=== PATIENT | male | born 1955 | race Caucasian/White ===

== ENCOUNTER 2019-10-24 19:10 | Emergency (ER) | payer OTHER ==
[~2019-10-24] VITALS: Ht 175.3 cm; Wt 106.6 kg
[2019-10-24] MEDS ORDERED: HYDROCHLOROTHIA25 MG (19:32)
[2019-10-24] MEDS ORDERED: COZAAR100 MG (19:32)
[2019-10-24] MEDS ORDERED: FORTAMET500 MG (19:33)
[2019-10-24] MEDS ORDERED: DILTIAZEM ER240 M3 (19:33)
[2019-10-24] MEDS ORDERED: MEDI-MECLIZINE25 MG (19:33)
[2019-10-24] MEDS ORDERED: AMLODIPINE-OLM1 EAC2 (19:34)
== END 2019-10-24 21:57 | disposition home or self-care (01) ==
LOC: ER 19:10
DX: R42 Dizziness and giddiness (principal)

== ENCOUNTER 2019-11-02 12:52 | Emergency (ER) | payer OTHER ==
[~2019-11-02] VITALS: Ht 175.3 cm; Wt 106.6 kg
[~2019-11-02 12:52] MED LIST: AMLODIPINE-OLM1 EAC2; COZAAR100 MG; DILTIAZEM ER240 M3; FORTAMET500 MG; HYDROCHLOROTHIA25 MG; MEDI-MECLIZINE25 MG
== END 2019-11-02 17:47 | disposition home or self-care (01) ==
LOC: ER 12:52 → EDBD 13:30 → ER 17:47
DX: J32.0 Chronic maxillary sinusitis (principal); B34.9 Viral infection, unspecified; Z03.818 Encounter for observation for suspected exposure to other biological agents ruled out

== ENCOUNTER 2020-10-17 14:04 | Outpatient (CLI) | payer OTHER | END 2020-10-17 14:09 | disposition home or self-care (01) | LOC: RAD 14:04 | PROVIDERS: ATTEND Internal Medicine Cardiovascular Disease | DX: M54.5 Low back pain (principal); M12.89 Other specific arthropathies, not elsewhere classified, multiple sites ==

== ENCOUNTER 2021-01-16 15:47 | Emergency (ER) | payer OTHER ==
[~2021-01-16] VITALS: Ht 170.2 cm; Wt 106.6 kg
[2021-01-16] MEDS ORDERED: TOPROL XL100 M1 (16:50)
== END 2021-01-16 20:28 | disposition home or self-care (01) ==
LOC: ER 15:47
DX: M48.07 Spinal stenosis, lumbosacral region (principal); M54.59 Other low back pain

== ENCOUNTER 2021-01-24 13:19 | Outpatient (CLI) | payer OTHER ==
[~2021-01-24 13:19] MED LIST changes: +TOPROL XL100 M1
== END 2021-01-24 13:28 | disposition home or self-care (01) ==
LOC: MRI 13:19
DX: M48.07 Spinal stenosis, lumbosacral region (principal); M54.41 Lumbago with sciatica, right side
CPT/HCPCS: 72148

== ENCOUNTER 2021-04-29 08:17 | Emergency (ER) | payer OTHER ==
[~2021-04-29] VITALS: Ht 172.7 cm; Wt 99.8 kg
== END 2021-04-29 12:25 | disposition home or self-care (01) ==
LOC: ER 08:17
DX: U07.1 COVID-19 (principal); B34.9 Viral infection, unspecified; R05.9 Cough, unspecified

== ENCOUNTER 2022-04-16 07:57 | Emergency (ER) | payer OTHER ==
[~2022-04-16] VITALS: Ht 177.8 cm; Wt 99.8 kg
[2022-04-16] MEDS ORDERED: PANTOPRAZOLE SO40 M2 (08:18)
[2022-04-16] MEDS ORDERED: PEPCID AC20 MG PO (08:19)
== END 2022-04-16 11:39 | disposition home or self-care (01) ==
LOC: ER 07:57
DX: R10.13 Epigastric pain (principal); Z91.013 Allergy to seafood; E11.9 Type 2 diabetes mellitus without complications; Z79.84 Long term (current) use of oral hypoglycemic drugs; Z88.0 Allergy status to penicillin; K21.9 Gastro-esophageal reflux disease without esophagitis; I10 Essential (primary) hypertension

== ENCOUNTER 2022-08-13 05:00 | Day surgery (SDC) | payer OTHER ==
[~2022-08-13] VITALS: Ht 177.8 cm; Wt 95.3 kg
[~2022-08-13 05:00] MED LIST changes: +AMLODI PO; +PANTOPRAZOLE SO40 M2; +PEPCID AC20 MG PO; +TOPROL XL100 M1 PO
== END 2022-08-13 13:50 | disposition home or self-care (01) ==
LOC: CIR.AMB 05:00
PROVIDERS: ATTEND Specialist
DX: K80.10 Calculus of gallbladder with chronic cholecystitis without obstruction (principal); R59.0 Localized enlarged lymph nodes; Z20.822 Contact with and (suspected) exposure to COVID-19; I10 Essential (primary) hypertension; E11.9 Type 2 diabetes mellitus without complications; Z79.4 Long term (current) use of insulin; Z88.0 Allergy status to penicillin; Z91.013 Allergy to seafood